=== PATIENT | female | born 1970 | race Caucasian/White ===

== ENCOUNTER 2020-09-09 12:30 | Emergency (ER) | payer BC, OTHER ==
[2020-09-09 12:46] VITALS: TEMP 98.3; BMI 23.3
[2020-09-09] MEDS ORDERED: METOCLOPRAMIDE HCL 10 MG TABLET (FP) PO ONE (13:23)
[2020-09-09] MEDS ORDERED: MECLIZINE HCL 25 MG TABLET (FP) PO ONE (13:23)
[2020-09-09] MEDS ORDERED: METOCLOPRAMIDE HCL INJECTION 10 MG/2 ML VIAL IVPUSH ONE (13:34)
[2020-09-09] MEDS ORDERED: LACTATED RINGERS SOLUTION 1000 ML INFUS.BAG IV ONE (13:34)
[2020-09-09] MEDS ORDERED: LORazepam 2 MG/ML SDV VIAL IVPUSH ONE (14:02)
[2020-09-09] MEDS ORDERED: MECLIZINE HCL 25 MG TABLET (FP) ONE (14:41)
[2020-09-09] MEDS ORDERED: LORazepam 2 MG/ML SDV VIAL ONE (14:41)
[2020-09-09] MEDS ORDERED: METOCLOPRAMIDE HCL INJECTION 10 MG/2 ML VIAL ONE (14:42)
[2020-09-09 15:17] LABS: EOS % 0.3 % (0-4.5); HEMATOCRIT 45.5 % (32.4-45.2); HEMOGLOBIN 15.6 GM/dL (10.7-15.3); LYMPH % 15.5 % (8-40); MCHC 34.3 g/dl (32.0-36.0); MEAN CELL VOLUME 87.3 fl (80-96); MEAN PLT VOLUME 8.9 fl (7.5-11.1); MONO % 7.3 % (3.8-10.2); NEUT % 75.9 % (42.8-82.8); PLATELET COUNT 193 10^3/uL (134-434); RBC 5.21 M/mm3 (3.60-5.2); RDW 12.5 % (11.6-15.6); WHITE BLOOD COUNT 9.6 K/mm3 (4.0-10.0)
[2020-09-09 15:40] LABS: BLOOD UREA NITROGEN 10.9 mg/dL (7-18); CALCIUM 9.8 mg/dL (8.5-10.1)
[2020-09-09 15:44] LABS: CREATININE 0.6 mg/dL (0.55-1.3)
[2020-09-09] MEDS ORDERED: POTASSIUM CHLORIDE TABS 20 MEQ TABLET.ER (FP) PO ONE ×2 (15:46→16:28)
[2020-09-09 17:09] VITALS: BP 129/65; PULSE 96
== END 2020-09-09 17:35 | disposition home or self-care (01) ==
LOC: JER 12:30
PROC: 3E033NZ Introduction of Analgesics, Hypnotics, Sedatives into Peripheral Vein, Percutaneous Approach (ICD-10-PCS; principal; 2020-09-09)
PROC: 3E033GC Introduction of Other Therapeutic Substance into Peripheral Vein, Percutaneous Approach (ICD-10-PCS; 2020-09-09)
DX: R42 Dizziness and giddiness (principal)
CPT/HCPCS: 36415; 80048; 84443; 85025; 93005; 93010; 99284-25